=== PATIENT | male | born 1955 | race African-American/Black ===

== ENCOUNTER 2016-04-12 21:17 | Emergency (ER) | payer OTHER, SELFPAY ==
[~2016-04-12 21:17] MED LIST: Lidocaine 1% 20 ML MDV ONE
[2016-04-12] MEDS ORDERED: cefTRIAXone\\ROCEPHIN 1 GM VIAL ONE (22:11)
[2016-04-12] MEDS ORDERED: AMOXicillin 250 MG CAP ONE (22:12)
[2016-04-12] MEDS ORDERED: predniSONE 20 MG TAB ONE (22:13)
[2016-04-12] MEDS ORDERED: Ondansetron ODT 4 MG TAB ONE (22:13)
--- NOTE | 2016-04-12 22:25 | PICIS ---
[facility] EMERGENCY RECORD TRIAGE (21:25 JDEA) TRIAGE NOTES: pt states flu like symptoms for the past two days. (21:25 JDEA) PATIENT: NAME: Marlon Orona, AGE: 60, GENDER: male, : Wed1955, TIME OF GREET: Sun Apr 12, 2016 21:18, PREFERRED LANGUAGE: Tuvaluan, ETHNICITY: Not or , [facility]: [facility], SSN: [id number], Zip Code: [address], KG WEIGHT: 97.52, PHONE: , , , PERSON ID: [id number], PCP: Addy. (21:25 JDEA) COMPLAINT: FLU LIKE SYMPTOMS. (21:25 JDEA) ADMISSION: URGENCY: 4 Non Urgent, ADMISSION SOURCE: Home, TRANSPORT: Walk-in, BED: TRIAGE. (21:25 JDEA) IMMUNIZATIONS: Flu vaccine up to date, Tetanus immunization up to date, Pneumococcal vaccine not up to date. (21:26 JDEA) TRIAGE SCREENING: Patient denies suicidal ideation, Patient denies presence of domestic violence. (21:26 JDEA) PROVIDERS: TRIAGE NURSE: Ely Rogers RN. (21:25 JDEA) VITAL SIGNS: BP 136/69, Pulse 84, Resp 20, Temp 99.1, (Oral), Pain 2, O2 Sat 97, on Room Air, Time 04/12/2016 21:24. (21:24 JDEA) KNOWN ALLERGIES ALLERGIES: (Unconfirmed) NKDA No Known Allergies (Unconfirmed) No Known Drug Allergies (Unconfirmed) CURRENT MEDICATIONS (22:24 JDEA) colchicine: TABLET : Strength - 0.6 mg : ORAL Patient Dose: 2 tab(s) Oral See Notes.Entered brand: colchicine Tab. VITAL SIGNS VITAL SIGNS: BP: 136/69, Pulse: 84, Resp: 20, Temp: 99.1 (Oral), Pain: 2, O2 sat: 97 on Room Air, Time: 04/12/2016 21:24. (21:24 JDEA) BP: 139/72, Pulse: 80, Resp: 18, Temp: 99, Pain: 0, O2 sat: 99 on RA, Time: 04/12/2016 22:36. (22:36 JDEA) NURSING ASSESSMENT: ENT (21:31 JDEA) CONSTITUTIONAL: Complex assessment performed, Patient arrives ambulatory, Gait steady, History obtained from patient, Patient appears comfortable, Patient cooperative, Patient alert, Oriented to person, place and time, Skin warm, Skin dry, Skin normal in color, Mucous membranes pink, Mucous membranes moist, Patient complains of weakness, pt in for complaints of not feeling well for the past two days, states that he thinks he has fever, states that he has just been weak, denies n/v, denies cough and congestion. PAIN: aching pain, entire body, constant, on a scale 0-10 patient rates pain as 2. &a-1R&a+25V*p+0X*[id number]*c202B*c15G*c2P*p-0X&a-25V&a+1R Name: Marlon Orona : 1955 M60 MedRec: [id number] AcctNum: [id number] Prepared: Tonie Apr 12, 2016 22:48 by Interface Page 1 of 7 pMD [facility] EMERGENCY RECORD ENT: Ear assessment findings include ear normal to inspection, Nasal assessment findings include nose normal to inspection, Sinuses normal, Nasal mucosa normal, Mouth and throat assessment findings include mouth inspection normal, Uvula normal, Tonsils normal, Mucous membranes pink, and moist, Able to swallow, Speech normal, no associated fever, no associated headache. RESPIRATORY/CHEST: Breath sounds clear, Respiratory assessment findings include respiratory effort easy, Respirations regular, Conversing normally, Neck and chest exam findings include trachea midline, Chest expansion equal, Chest movement symmetrical, no signs of distress, no associated cough noted. NOTES: Patient tolerated procedure well. SAFETY: Side rails up, Cart/Stretcher in lowest position, Family at bedside, Call light within reach, Hospital ID band on. NURSING PROCEDURE: WATCH GUARD GATE (21:33 JDEA) PATIENT IDENTIFIER: Patient actively involved in identification process, Patient's identity verified by hospital ID bracelet. WATCH GUARD GATE: Cardiac monitoring indicated for er indication, Patient placed on donor recruitment manager, Patient placed on non-invasive blood pressure monitor, Patient placed on continuous pulse oximetry. FOLLOW-UP: After procedure, alarms set and on. NOTES: Patient tolerated procedure well. SAFETY: Side rails up, Cart/Stretcher in lowest position, Family at bedside, Call light within reach, Hospital ID band on. NURSING PROCEDURE: DISCHARGE NOTE (22:36 JDEA) DISCHARGE: Patient discharged to home, ambulating without assistance, family driving, accompanied by other family member, Summary of Care printed/ provided, Patient requested and was provided an electronic copy of Discharge Instructions, Transition record given to patient, Discharge instructions given to patient, Simple or moderate discharge teaching performed, Prescriptions given and instructions on side effects given, Above person(s) verbalized understanding of discharge instructions and follow-up care, Patient treated and evaluated by physician. BELONGINGS: Belongings and valuables with patient at time of discharge include:, Belongings remain with patient. VITAL SIGNS: BP: 139, / 72, Pulse: 80, Resp: 18, Temp: 99, Pain: 0, O2 sat: 99, on: RA, Time: 2236. MEDICATION ADMINISTRATION SUMMARY Drug Name: Rocephin intravenous, Dose Ordered: 1 g, Route: Intramuscular, Status: Given, Time: 22:24 04/12/2016, Drug Name: predniSONE oral, Dose Ordered: 60 mg, Route: Oral, Status: Given, Time: 22:23 04/12/2016, Drug Name: amoxicillin, Dose Ordered: 500 mg, Route: Oral, Status: Given, Time: 22:23 04/12/2016, Drug Name: Zofran ODT, Dose Ordered: 8 mg, Route: Sublingual, Status: &a-1R&a+25V*p+0X*[id number]*c202B*c15G*c2P*p-0X&a-25V&a+1R Name: Marlon Orona Rolly : 1955 M60 MedRec: [id number] AcctNum: [id number] Prepared: Tonie Apr 12, 2016 22:48 by Interface Page 2 of 7 pMD [facility] EMERGENCY RECORD Given, Time: 22:20 04/12/2016, Detailed record available in Medication Service section. MEDICATION SERVICE amoxicillin: Order: amoxicillin (amoxicillin trihydrate) - Dose: 500 mg : Oral Schedule: Now Ordered by: Everett Mina MD Entered by: MD Tonie De Leon Apr 12, 2016 22:08 , Acknowledged by: KEYLA Abarca Apr 12, 2016 22:10 Documented as given by: KEYLA Abarca Apr 12, 2016 22:23 Patient, Medication, Dose, Route and Time verified prior to administration. Amount given: 500mg, Site: Medication administered P.O., Correct patient, time, route, dose and medication confirmed prior to administration, Patient advised of actions and side-effects prior to administration, Allergies confirmed and medications reviewed prior to administration, Patient in position of comfort, Side rails up, Cart in lowest position, Family at bedside, Call light in reach. predniSONE oral: Order: predniSONE oral (prednisone) - Dose: 60 mg : Oral Schedule: Now Ordered by: Everett Mina MD Entered by: Everett Mina MD WedApr 12, 2016 22:08 , Acknowledged by: KEYLA Abarca Apr 12, 2016 22:10 Documented as given by: KEYLA Abarca Apr 12, 2016 22:23 Patient, Medication, Dose, Route and Time verified prior to administration. Amount given: 60mg, Site: Medication administered P.O., Correct patient, time, route, dose and medication confirmed prior to administration, Patient advised of actions and side-effects prior to administration, Allergies confirmed and medications reviewed prior to administration, Patient in position of comfort, Side rails up, Cart in lowest position, Family at bedside, Call light in reach. Rocephin intravenous: Order: Rocephin intravenous (ceftriaxone sodium) - Dose: 1 g : Intramuscular Schedule: Now Ordered by: Everett Mina MD Entered by: Everett Mina MD WedApr 12, 2016 22:08 , Acknowledged by: Ely Rogers RN WedApr 12, 2016 22:10 Documented as given by: KEYLA Abarca Apr 12, 2016 22:24 Patient, Medication, Dose, Route and Time verified prior to administration. IM medication, Amount given: 1g, Medication administered to right buttock, Correct patient, time, route, dose and medication confirmed prior to administration, Patient advised of actions and side-effects prior to administration, Allergies confirmed and medications reviewed prior to administration, Patient in position of comfort, Side rails up, Cart in lowest position, Family at bedside, Call light in reach. Zofran ODT: Order: Zofran ODT (ondansetron) - Dose: 8 &a-1R&a+25V*p+0X*y0018O*c202B*c15G*c2P*p-0X&a-25V&a+1R Name: Marlon Orona : 1955 M60 MedRec: [id number] AcctNum: [id number] Prepared: Tonie Apr 12, 2016 22:48 by Interface Page 3 of 7 pMD [facility] EMERGENCY RECORD mg : Sublingual Schedule: Now Ordered by: Everett Mina MD Entered by: MD Tonie De Leon Apr 12, 2016 22:09 , Acknowledged by: KEYLA Abarca Apr 12, 2016 22:10 Documented as given by: KEYLA Abarca Apr 12, 2016 22:20 Patient, Medication, Dose, Route and Time verified prior to administration. Amount given: 8mg, Site: Medication administered S.L., Correct patient, time, route, dose and medication confirmed prior to administration, Patient advised of actions and side-effects prior to administration, Allergies confirmed and medications reviewed prior to administration, Patient in position of comfort, Side rails up, Cart in lowest position, Family at bedside, Call light in reach. HPI COUGH (22:13 LLDO) CHIEF COMPLAINT: Patient presents for evaluation of cough, productive of yellow sputum, Patient presents for evaluation of chest congestion, headache, body aches. HISTORIAN: History provided by patient, History provided by patient's spouse, History provided by patient's family. LOCATION: Symptoms are generalized. QUALITY: Denies tightness, Denies wheezing. SEVERITY: Maximum severity of symptoms moderate, Currently symptoms are moderate. TIME COURSE: Sudden onset of symptoms, Symptoms are worsening, are constant. ASSOCIATED WITH: Associated symptoms reviewed, Associated with fever, subjective, Associated with upper respiratory infection, No associated wheezing, Associated with weakness. EXACERBATED BY: Patient's condition exacerbated by deep breaths, Patient's condition exacerbated by exercise, Patient's condition exacerbated by lying flat. RELIEVED BY: Patient's condition relieved by nothing. ROS CONSTITUTIONAL: Historian reports fatigue, reports fever, reports malaise. (22:14 LLDO) EYES: Negative eye review of systems, Historian denies eye pain, denies eye redness, denies eye discharge. (22:17 LLDO) ENT: Historian denies sore throat. (22:14 LLDO) CARDIOVASCULAR: Historian denies chest pain, no radiation, Historian reports dyspnea on exertion. (22:14 LLDO) RESPIRATORY: Historian reports cough, reports sputum. described as thick, green, yellow, Historian denies stridor, denies wheezing. (22:14 LLDO) MUSCULOSKELETAL: Historian reports myalgias. (22:14 LLDO) NEUROLOGIC: Negative neurologic review of systems, Historian &a-1R&a+25V*p+0X*o2390N*c202B*c15G*c2P*p-0X&a-25V&a+1R Name: Marlon Orona : 1955 M60 MedRec: [id number] AcctNum: [id number] Prepared: Tonie Apr 12, 2016 22:48 by Interface Page 4 of 7 pMD [facility] EMERGENCY RECORD denies confusion, denies focal weakness, denies mental status changes, denies sensory changes. (22:17 LLDO) ALLERGIC/IMMUNOLOGIC: Normal allergy/immunologic system review, Historian denies eczema, denies environmental allergies, denies food allergies. (22:17 LLDO) PSYCHIATRIC: Negative psychiatric review of systems, Historian denies alcohol abuse, denies anxiety, denies depression, denies drug abuse, denies hallucinations. (22:17 LLDO) NOTES: All systems reviewed, negative except as described above. (22:14 LLDO) PAST MEDICAL HISTORY MEDICAL HISTORY: No past medical history. (21:26 JDEA) MALE SURGICAL HISTORY: surgery of right eye surgery. (21:26 JDEA) PSYCHIATRIC HISTORY: No previous psychiatric history. (21:26 JDEA) SOCIAL HISTORY: Patient denies alcohol use, Patient denies drug use, Patient has no smoking history, Lives at home, with family. (21:26 JDEA) NOTES: Nursing records reviewed, Agree with nursing records, Medication list reviewed. (22:17 LLDO) PHYSICAL EXAM CONSTITUTIONAL: Vital Signs Reviewed, Patient afebrile, Pulse normal, Blood pressure normal, Respiratory rate normal, Normal pulse oximetry, Patient appears, uncomfortable, Patient appears, in mild pain distress, Patient alert and oriented to person, place and time, Nursing notes reviewed. (22:16 LLDO) HEAD: Head exam normal, Head exam included findings of head atraumatic, normocephalic. (22:17 LLDO) EYES: Eye exam normal, Eye exam included findings of eyelids normal to inspection, Pupils equally round and reactive to light, Extraocular muscles intact. (22:17 LLDO) ENT: ENT exam normal, Ear exam normal, Nose exam normal. (22:17 LLDO) NECK: Neck exam normal, Neck exam included findings of normal range of motion, Trachea midline, no meningeal signs, no tenderness. (22:17 LLDO) RESPIRATORY CHEST: Respiratory exam included findings of no respiratory distress, Rales present, Chest exam included findings of chest movement symmetrical, Chest expansion equal, no tenderness, RALES MOD AND SCATTERED. (22:16 LLDO) CARDIOVASCULAR: Cardiovascular exam included findings of heart rate regular rate and rhythm, Heart sounds normal. (22:16 LLDO) ABDOMEN MALE: Abdominal exam included findings of abdomen nontender, Bowel sounds normal, Liver normal, Spleen normal, no distension, no mass, no pulsatile masses, no peritoneal signs. (22:16 LLDO) &a-1R&a+25V*p+0X*j1256E*c202B*c15G*c2P*p-0X&a-25V&a+1R Name: Marlon Orona : 1955 M60 MedRec: [id number] AcctNum: [id number] Prepared: Tonie Apr 12, 2016 22:48 by Interface Page 5 of 7 pMD [facility] EMERGENCY RECORD BACK: Back exam normal, Back exam included findings of normal inspection, range of motion normal. (22:17 LLDO) UPPER EXTREMITY: Upper extremity exam normal, Upper extremity exam included findings of inspection normal, Range of motion normal. (22:17 LLDO) LOWER EXTREMITY: Lower extremity exam normal, Lower extremity exam included findings of inspection normal, Range of motion normal. (22:17 LLDO) NEURO: Neuro exam findings include patient oriented to person, place and time, Speech normal, Gait normal, Memory normal, Cranial nerves intact, Deep tendon reflexes normal, no focal motor deficits, no focal sensory deficits, no cerebellar deficits, no nystagmus. (22:16 LLDO) SKIN: Skin exam normal, Skin exam included findings of skin warm, dry, and normal in color, no rash. (22:17 LLDO) PSYCHIATRIC: Psychiatric exam normal, Psychiatric exam included findings of patient oriented to person place and time, Normal affect, Judgment normal. (22:17 LLDO) EVENTS TRANSFER: Triage to Emergency Triage. (Tonie Apr 12, 2016 21:25 JDEA) Emergency Triage to Main ED -05. (21:25 JDEA) Removed from Emergency Main ED -05. (22:36 JDEA) PROBLEM LIST No recorded problems DIAGNOSIS (22:10 LLDO) FINAL: PRIMARY: Acute bronchitis. DISPOSITION PATIENT: Disposition Type: Discharge, Disposition: *Discharge Home. (22:10 LLDO) Patient left the department. (22:36 JDEA) INSTRUCTION (22:12 LLDO) DISCHARGE: BRONCHITIS, ABX TX (ADULT). FOLLOWUP: Follow up with Primary Care Physician in 7-10 days. SPECIAL: Follow-up with your PCP. PRESCRIPTION (22:11 LLDO) amoxicillin: CAPSULE (HARD, SOFT, ETC.) : 500 mg : ORAL : Quantity: 1 Unit: cap(s) Route: ORAL Schedule: 3 times a day Dispense: 30 May substitute. Refills: No Refills . NOTES: No Refills. Phenergan DM: SYRUP : : ORAL : Quantity: 1-2 Unit: teaspoon Route: ORAL Schedule: every 4 hours prn Dispense: 180 Unit: mL &a-1R&a+25V*p+0X*v4495P*c202B*c15G*c2P*p-0X&a-25V&a+1R Name: Marlon Orona : 1955 M60 MedRec: [id number] AcctNum: [id number] Prepared: Tonie Apr 12, 2016 22:48 by Interface Page 6 of 7 pMD [facility] EMERGENCY RECORD May substitute. Refills: No Refills . NOTES: ^s=No Refills No Refills. predniSONE oral: TABLET : 20 mg : ORAL : Quantity: * Unit: Route: ORAL Schedule: See Notes Dispense: 2O May substitute. Refills: No Refills . NOTES: 3 TABS PER DAY FOR 3 DAYS, THEN 2 TABS PER DAY FOR 3 DAYS, THEN ONE TAB PER DAY UNTIL GONE No Refills. IMAGING *DISCHARGE INSTRUCTIONS RECEIPT: Image captured from scanner. (22:36 JDEA) *SUPPLY CHARGE SHEET: Image captured from scanner. (22:37 EFREN) ADMIN (22:19 DAVID) DIGITAL SIGNATURE: MD Mina Lloyd. Gramajo: EFREN=KEYLA Rogers, Ely AGUIRREDO=MD Mina Lloyd &a-1R&a+25V*p+0X*s7775P*c202B*c15G*c2P*p-0X&a-25V&a+1R Name: Marlon Orona : 1955 M60 MedRec: [id number] AcctNum: [id number] Prepared: Tonie Apr 12, 2016 22:48 by Interface Page 7 of 7 pMD [facility] MEDICATION RECONCILIATION You were seen in the Emergency Department on: Tonie Apr 12, 2016 KNOWN ALLERGIES ALLERGIES: (Unconfirmed) NKDA No Known Allergies (Unconfirmed) No Known Drug Allergies (Unconfirmed) MEDICATIONS GIVEN WHILE IN THE EMERGENCY DEPARTMENT amoxicillin (amoxicillin trihydrate) - Dose: 500 milligram(s) : Oral Rocephin intravenous (ceftriaxone sodium) - Dose: 1 gram(s) : Intramuscular predniSONE oral (prednisone) - Dose: 60 milligram(s) : Oral Zofran ODT (ondansetron) - Dose: 8 milligram(s) : Sublingual HOME MEDICATIONS colchicine : TABLET : Strength - 0.6 mg : ORAL Patient had been takin tab(s) Oral See Notes. Notes from the emergency department Reviewed with family Reviewed with patient PRESCRIPTIONS (3) Printed (3) amoxicillin : CAPSULE (HARD, SOFT, ETC.) : 500 mg : ORAL Quantity: 1, Unit: cap(s), Route: ORAL, Schedule: 3 times a day, Dispense: 30 Phenergan DM : SYRUP : : ORAL Quantity: 1-2, Unit: teaspoon, Route: ORAL, Schedule: every 4 hours prn, Dispense: 180 Unit: milliliter(s) &a-1R&a+25V*p+0X*i6066D*c202B*c15G*c2P*p-0X&a-25V&a+1R Name: Yeyo Marlon D : 1955 M60 MedRec: [id number] AcctNum: [id number] Prepared: Tonie Apr 12, 2016 22:48 by Interface pMD LIA
== END 2016-04-12 22:36 | disposition home or self-care (01) ==
LOC: MADERS 21:17
DX: J20.9 Acute bronchitis, unspecified (principal)
CPT/HCPCS: 96372; J0696; J2001; J7506; Q0162

== ENCOUNTER 2018-09-26 09:19 | Outpatient (CLI) | payer OTHER, SELFPAY ==
[2018-09-26 11:01] LABS: ALT (SGPT) 26 U/L (8-55); AST (SGOT) 19 U/L (5-34); Albumin 3.9 g/dL (3.4-4.8); Alkaline Phosphatase 52 U/L (40-150); Anion Gap 13 mmol/L (10-20); BUN (Urea Nitrogen) 17 mg/dL (8.4-25.7); Bilirubin, Total 0.4 mg/dL (0.2-1.2); Calc. Creatinine Clearance 0 mL/min (70-130); Carbon Dioxide 24 mmol/L (23-31); Cardiac Risk 4.3 (Less than 4.5); Chloride 108 mmol/L (98-107); Cholesterol 204 mg/dl (< 200 Desired); Estimated GFR-MDRD 80; Globulin 3.5 g/dL (2.4-3.5); Glucose 97 mg/dL (80-115); HDL Cholesterol 48 mg/dL (>60 Neg Risk); LDL Cholesterol, Calculated 144 mg/dL; Potassium 3.9 mmol/L (3.5-5.1); Protein, Total 7.4 g/dL (5.8-8.1); Sodium 141 mmol/L (136-145); Triglycerides 59 mg/dL (Less than 150)
[2018-09-26 11:15] LABS: Thyroid Stimulating Hormone 0.9034 uIU/mL (0.35-4.94)
[2018-09-26 11:46] LABS: #Basophils 0.1 thou/uL (0.0-0.2); #Eosinphils 0.2 thou/uL (0.0-0.7); #Lymphocytes 2.3 thou/uL (1.20-3.40); #Monocytes 0.5 thou/uL (0.11-0.59); #Neutrophils 3.6 thou/uL (1.40-6.50); %Basophils 1.1 % (0.0-1.0); %Eosinophils 3.1 % (0.0-10.0); %Lymphocytes 34.2 % (21.0-51.0); %Monocytes 7.8 % (0.0-10.0); %Neutrophils 53.8 % (42.0-75.0); Hemoglobin 14.2 g/dL (14.0-18.0); Mean Corpuscular HGB CONC 31.4 g/dL (32.0-36.0); Mean Corpuscular Hemoglobin 29.2 pg (27.0-31.0); Mean Corpuscular Volume 93.1 fL (78.0-98.0); Mean Platelet Volume 8.4 fL (7.4-10.4); Platelet Count 216 thou/uL (130-400); RBC Distribution Width 13.1 % (11.5-14.5); Red Blood Cell (RBC) Count 4.85 mill/uL (4.70-6.10); White Blood Cell (WBC) Count 6.7 thou/uL (4.8-10.8)
[2018-09-26 17:38] LABS: Hemoglobin A1c 6.2 % (4.0-6.0)
[2018-09-26 18:07] LABS: Vitamin D, 25 Hydroxy 10.3 ng/ml (> 30.0)
== END 2018-09-26 09:20 | disposition home or self-care (01) ==
LOC: MADLABBHPM 09:19
PROVIDERS: ATTEND Family Medicine
DX: Z00.00 Encounter for general adult medical examination without abnormal findings (principal); H81.10 Benign paroxysmal vertigo, unspecified ear
CPT/HCPCS: 36415; 80053; 80061; 82306; 83036; 84443; 85025; 93005; 93010

== ENCOUNTER 2020-03-11 12:28 | Emergency (ER) | payer OTHER ==
--- NOTE | 2020-03-11 13:03 | RAD ---
Portable frontal chest radiograph: 03/11/2020 COMPARISON: 10/28/2010 HISTORY: Cough FINDINGS: Lungs are clear. Heart and mediastinal contours appear within normal limits. Bilateral AC j oint degenerative change. IMPRESSION: No acute findings.
[2020-03-12 01:59] LABS: SARS-CoV-2 MS2 Positive; SARS-CoV-2 N Gene Positive; SARS-CoV-2 S Gene Positive; SARS-CoV-2 by NAA DETECTED (NotDetected); SARS-CoV-2 orf1ab Positive
== END 2020-03-11 13:20 | disposition home or self-care (01) ==
LOC: MADERS 12:28
DX: U07.1 COVID-19 (principal); Z71.6 Tobacco abuse counseling
CPT/HCPCS: 71045; 87635; 99406; U0003

== ENCOUNTER 2020-04-20 22:26 | Emergency (ER) | payer OTHER ==
[2020-04-20 23:05] LABS: Bilirubin Negative (Negative); Blood, Urine Small (Negative); Clarity Clear (Clear); Glucose, Urine (Dipstick) 100 mg/dL (Negative); Ketone, Urine Negative (Negative); Leukocyte Small (Negative); Nitrite Positive (Negative); Protein, Urine (Dipstick) Negative (Neg-Trace); pH, Urine 5.5 (5.0-9.0)
[2020-04-20 23:15] LABS: Bacteria/HPF 3+ HPF (None Seen); Mucous/LPF None Seen LPF (<2+); RBC/HPF 0-3 HPF (0-3); Squamous Epithelial 0-3 HPF (0-3)
[2020-04-20] MEDS ORDERED: HYDROcodone/Acetaminophen 5/325 mg Tablet ONE (23:24)
== END 2020-04-20 23:28 | disposition home or self-care (01) ==
LOC: MADERS 22:26
DX: N39.0 Urinary tract infection, site not specified (principal)
CPT/HCPCS: 81003; 81015; 87077; 87086; 87186; 99283

== ENCOUNTER 2020-08-23 10:59 | Emergency (ER) | payer OTHER, SELFPAY | END 2020-08-23 11:31 | disposition home or self-care (01) | LOC: MADERS 10:59 | DX: L25.9 Unspecified contact dermatitis, unspecified cause (principal) | CPT/HCPCS: 99282 ==

== ENCOUNTER 2021-06-20 20:31 | Emergency (ER) | payer MEDICARE, SELFPAY ==
[~2021-06-20 20:31] MED LIST changes: -Lidocaine 1% 20 ML MDV ONE; +Sodium Chloride 0.9% 500 ML BAG ONE
[2021-06-20] MEDS ORDERED: Acetaminophen 500 MG TAB ONE (21:31)
[2021-06-20 22:00] LABS: Bicarbonate (HCO3v) 22.8 mmol/L (22.0-28.0); CO2 Tension (PvCO2) 34.4 mmHg (42.0-51.0); Calcium, Ionized 1.16 mmol/L (1.15-1.33); Chloride 109 mmol/L (98-107); Hemoglobin - Calc 15.3 g/dL (14.0-18.0); Potassium 3.6 mmol/L (3.5-5.1); Sodium 142 mmol/L (138-145); T. Carbon Dioxide 23.8 mmol/L (22.0-28.0); vO2 Saturation-calc 91.4 % (60.0-85.0)
[2021-06-20 22:07] LABS: ALT (SGPT) 18 U/L (8-55); AST (SGOT) 15 U/L (5-34); Albumin 3.9 g/dL (3.4-4.8); Alkaline Phosphatase 50 U/L (40-110); Anion Gap 16 mmol/L (10-20); BUN (Urea Nitrogen) 15 mg/dL (8.4-25.7); Bilirubin, Total 0.4 mg/dL (0.2-1.2); CK (CPK) 481 U/L (30-200); Calc. Creatinine Clearance 0 mL/min (70-130); Calcium 9.1 mg/dL (7.8-10.44); Carbon Dioxide 22 mmol/L (23-31); Chloride 108 mmol/L (98-107); Globulin 3.8 g/dL (2.4-3.5); Glucose 144 mg/dL (80-115); Magnesium 1.8 mg/dL (1.6-2.6); Potassium 3.7 mmol/L (3.5-5.1); Protein, Total 7.7 g/dL (5.8-8.1); Sodium 142 mmol/L (136-145)
[2021-06-20 22:10] LABS: Eosinophils 2 % (0-10); Hemoglobin 13.5 g/dL (14.0-18.0); Lymphocytes 8 % (21-51); MDiff Complete? YES; Mean Corpuscular HGB CONC 31.8 g/dL (32.0-36.0); Mean Corpuscular Hemoglobin 31.7 pg (27.0-31.0); Mean Corpuscular Volume 99.7 fL (78.0-98.0); Mean Platelet Volume 10.9 fL (7.4-10.4); Monocytes 2 % (0-10); Neutrophil 84 % (42-75); Platelet Count 173 thou/uL (130-400); Platelet Morphology Comment Appears Adequate; RBC Distribution Width 13.3 % (11.5-14.5); RBC Morphology Normal; Reactive Lymphocytes 4 % (0-10); Red Blood Cell (RBC) Count 4.27 mill/uL (4.70-6.10); White Blood Cell (WBC) Count 12.1 thou/uL (4.8-10.8)
[2021-06-20 23:36] LABS: Bilirubin Negative (Negative); Blood, Urine Trace (Negative); Clarity Clear (Clear); Glucose, Urine (Dipstick) Negative (Negative); Ketone, Urine 15 mg/dL (Negative); Leukocyte Negative (Negative); Nitrite Negative (Negative); Protein, Urine (Dipstick) Trace mg/dL (Neg-Trace); Urobilinogen 0.2 mg/dL (Less than 2); pH, Urine 5.5 (5.0-9.0)
[2021-06-20 23:42] LABS: Bacteria/HPF None Seen HPF (None Seen); RBC/HPF None Seen HPF (0-3); Specific Gravity, Urine 1.029 (1.002-1.036); Squamous Epithelial 0-3 HPF (0-3); WBC/HPF 0-3 HPF (0-3)
[2021-06-21 00:27] LABS: SARS-CoV-2 NAA Rapid Test Not Detected (NotDetected)
== END 2021-06-21 01:15 | disposition home or self-care (01) ==
LOC: MADERS 20:31
DX: J06.9 Acute upper respiratory infection, unspecified (principal); R00.0 Tachycardia, unspecified; I49.3 Ventricular premature depolarization; Z20.822 Contact with and (suspected) exposure to COVID-19
CPT/HCPCS: 71045; 80053; 81003; 81015; 82330; 82550; 82803; 83605; 83735; 83880; 84484; 85014; 85025; 87040; 87086; 93005; J7030

== ENCOUNTER 2023-10-09 21:40 | Emergency (ER) | payer MEDICARE ==
[2023-10-09] MEDS ORDERED: Acetaminophen 500 MG TAB ONE (21:56)
[2023-10-09 22:46] LABS: Influenza A by NAA Not Detected (NotDetected); Influenza B by NAA Not Detected (NotDetected); SARS-CoV-2 NAA Rapid Test DETECTED (NotDetected)
== END 2023-10-09 23:20 | disposition home or self-care (01) ==
LOC: MADERS 21:40
DX: U07.1 COVID-19 (principal); R03.0 Elevated blood-pressure reading, without diagnosis of hypertension
CPT/HCPCS: 0240U; 87081; 87430; 99284

== ENCOUNTER 2024-06-08 01:59 | Emergency (ER) | payer SELFPAY ==
[2024-06-08] MEDS ORDERED: Bupivacaine PF 0.5% 30 ML VIAL ONE (03:09)
[2024-06-08 04:32] LABS: ALT (SGPT) 15 U/L (Less than 45); AST (SGOT) 18 U/L (11-34); Albumin 4.3 g/dL (3.1-4.5); Alkaline Phosphatase 60 U/L (40-110); Anion Gap 14 mmol/L (10-20); BUN (Urea Nitrogen) 17 mg/dL (8.4-25.7); Bilirubin, Total 0.4 mg/dL (0.3-1.2); Calc. Creatinine Clearance 0 mL/min (70-130); Calcium 9.4 mg/dL (7.8-10.44); Carbon Dioxide 20 mmol/L (23-31); Chloride 109 mmol/L (98-107); Estimated GFR 71; Globulin 4.3 g/dL (2.4-3.5); Glucose 107 mg/dL (80-115); Potassium 4.2 mmol/L (3.5-5.1); Protein, Total 8.6 g/dL (5.8-8.1); Sodium 139 mmol/L (136-145)
== END 2024-06-08 05:22 | disposition left against medical advice (07) ==
LOC: MADERS 01:59
DX: L03.011 Cellulitis of right finger (principal); M65.841 Other synovitis and tenosynovitis, right hand; M10.9 Gout, unspecified; Z55.6 Problems related to health literacy
CPT/HCPCS: 10060; 80053; 83605; 86140; 94760; J0665